=== PATIENT | male | born 1955 | race Caucasian/White ===

== ENCOUNTER 2019-10-10 11:31 | Emergency (ER) | payer BC ==
[~2019-10-10] VITALS: Ht 170.2 cm; Wt 67.1 kg
[2019-10-10 12:13] LABS: BASOPHILS % 0.1 % (0.0-1.0); EOSINOPHILS # (AUTO) 0.1 (0.0-0.4); EOSINOPHILS % 1.1 % (0.0-6.0); HEMATOCRIT 32.1 % (38.2-49.6); HEMOGLOBIN 11.1 g/dL (14.0-18.0); LYMPHOCYTES % 26.3 % (18.0-39.1); MEAN CORPUSCULAR HEMOGLOBIN 29.5 pg (28-32); MEAN CORPUSCULAR HGB CONC 34.6 g/dL (31-35); MEAN CORPUSCULAR VOLUME 85.4 fL (81-99); MONOCYTES # (AUTO) 1.1 (0.2-0.8); MONOCYTES % 14.6 % (4.4-11.3); NEUTROPHILS # (AUTO) 4.4 (2.1-6.9); NEUTROPHILS % 57.8 % (38.7-80.0); PLATELET COUNT 265 x10e3/uL (140-360); RED BLOOD COUNT 3.76 x10e6/uL (4.3-5.7); RED CELL DISTRIBUTION WIDTH 12.6 % (11.7-14.4)
[2019-10-10 12:26] LABS: INR 0.96
[2019-10-10 12:27] LABS: PARTIAL THROMBOPLASTIN TIME 30.7 seconds (23.8-35.5)
--- NOTE | 2019-10-10 12:33 | Diagnostic Imaging Report ---
Chest, 2 views, 10/10/2019. History: Shortness of breath, chest pain. Comparison: None available. Findings: The cardiomediastinal silhouette and pulmonary vasculature are within normal limits. The lungs are clear without evidence of consolidation or pleural effusion. Mild degenerative changes are present in the thoracic spine. There are no acute osseous or soft tissue abnormalities. Impression: No acute cardiopulmonary abnormality. Signed by: Isra Brandon on 10/10/2019 12:31 PM
[2019-10-10 12:37] LABS: ALBUMIN 3.3 g/dL (3.5-5.0); ALBUMIN/GLOBULIN RATIO 0.8 (0.8-2.0); CALCIUM 8.7 mg/dL (8.4-10.2); CREATININE, SERUM 1.76 mg/dL (0.72-1.25); MAGNESIUM 1.9 MG/DL (1.3-2.1)
[2019-10-10 12:43] LABS: CREATINE KINASE MB 2.5 ng/mL (0-5.0)
[2019-10-10] MEDS ORDERED: POTASSIUM CHLORIDE 20 MEQ TAB CR PO STA (12:53)
[2019-10-10 13:36] VITALS: BP 107/67
== END 2019-10-10 13:50 | disposition home or self-care (01) ==
LOC: ER 11:31
DX: R06.00 Dyspnea, unspecified (principal); R05 Cough; J20.9 Acute bronchitis, unspecified; I51.9 Heart disease, unspecified
CPT/HCPCS: 36415; 71046; 80053; 82550; 82553; 83735; 83880; 84484; 85025; 85610; 85730; 93005; 99284